=== PATIENT | male | born 1960 | race African-American/Black ===

== ENCOUNTER 2020-02-07 09:47 | Emergency (ER) | payer OTHER ==
[~2020-02-07] VITALS: Ht 182.9 cm; Wt 89.4 kg
[2020-02-07] MEDS ORDERED: SUMATRIPTAN SUC50 MG PO (09:59)
[2020-02-07 10:10] VITALS: BP 150/84
--- NOTE | 2020-02-07 10:40 | Emergency Room Report ---
History of Present Illness General Chief Complaint: Constipation Source: Patient Present Illness HPI Disclaimer: Please note that this report is being documented using DRAGON technology. This can lead to erroneous entry secondary to incorrect interpretation by the dictating instrument. HPI: 59-year-old male presents for constipation and difficulty urinating. Symptoms present approximately 3 days. He is unable to have a bowel movement which is unusual for the patient. Seen at urgent care yesterday and prescribed a bowel cleanout regimen which he took but has had no effect. Minimal passing gas. Also reports difficulty initiating urination. Sometimes will have dribbling of urine and is now wearing depends diapers. Denies dysuria, hematuria, hernia, abdominal surgery. Colonoscopy at age 51 was unremarkable according to patient. Denies history of prostate issues. Does not use any other medications. Denies drug or alcohol use. 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 EOMI. Cardiovascular: RRR. S1 and S2 normal. No murmur appreciated Resp: Normal work of breathing. No cough, wheezing or crackles appreciated Abdomen: Abdomen is soft, moderately distended. No significant tenderness. Skin: Intact. No abrasions, laceration or rash over the exposed skin MSK: Normal tone and bulk. Moving all extremities. No obvious deformity. Neuro: Awake and alert. Mentating appropriately. Medical Decision Making Diagnostic Impression: Primary Impression: Enlarged prostate Additional Impression: Urinary retention ER Course 59-year-old male presents for evaluation of constipation and difficulty urinating. Differential includes was not limited to obstruction, impaction, electrolyte abnormality, dehydration, prostate enlargement, cystitis, pyelonephritis to name a few. Patient does have a slightly distended abdomen. Labs returned within normal limits though he was not able to fully void. CT scan shows a distended abdomen without obvious evidence of fecal impaction or other significant findings. Creatinine slightly elevated above normal limit at 1.6. Prostate was noted to be enlarged. A Carney catheter was placed with significant evacuation of urine, approximately 1300 cc. A leg bag was provided for patient will be discharged with Carney catheter. He states he will see his PMD tomorrow for your referral to urology. Have his prostate levels checked and have his renal function rechecked next week. Encouraged him to drink plenty fluids to avoid dehydration. We will continue his bowel cleanout and start on MiraLAX. Encouraged to return to the emergency department any new or worsening symptoms. Otherwise stable for outpatient follow-up. He understands and agrees with this treatment plan. Laboratory Tests Test 02/07/20 10:44 White Blood Count 7.1 K/UL (4.8-10.8) Red Blood Count 4.08 M/UL (4.70-6.10) L Hemoglobin 14.7 G/DL (14.2-18.0) Hematocrit 43.6 % (42.0-52.0) Mean Corpuscular Volume 107 FL (80-99) H Mean Corpuscular Hemoglobin 36.1 PG (27.0-31.0) H Mean Corpuscular Hemoglobin Concent 33.7 G/DL (32.0-36.0) Red Cell Distribution Width 11.7 % (11.6-14.8) Platelet Count 285 K/UL (150-450) Mean Platelet Volume 6.5 FL (6.5-10.1) Neutrophils (%) (Auto) 62.2 % (45.0-75.0) Lymphocytes (%) (Auto) 23.6 % (20.0-45.0) Monocytes (%) (Auto) 6.4 % (1.0-10.0) Eosinophils (%) (Auto) 6.6 % (0.0-3.0) H Basophils (%) (Auto) 1.2 % (0.0-2.0) Urine Color Yellow Urine Appearance Clear Urine pH 6 (4.5-8.0) Urine Specific [place] 1.010 (1.005-1.035) Urine Protein Negative (NEGATIVE) Urine Glucose (UA) Negative (NEGATIVE) Urine Ketones 1+ (NEGATIVE) H Urine Blood 1+ (NEGATIVE) H Urine Nitrite Negative (NEGATIVE) Urine Bilirubin Negative (NEGATIVE) Urine Urobilinogen Normal MG/DL (0.0-1.0) Urine Leukocyte Esterase 1+ (NEGATIVE) H Urine RBC 0-2 /HPF (0 - 0) H Urine WBC 0-2 /HPF (0 - 0) Urine Squamous Epithelial Cells Occasional /LPF Urine Bacteria Occasional /HPF (NONE) Sodium Level 137 MMOL/L (136-145) Potassium Level 3.7 MMOL/L (3.5-5.1) Chloride Level 98 MMOL/L (98-107) Carbon Dioxide Level 32 MMOL/L (21-32) Anion Gap 7 mmol/L (5-15) Blood Urea Nitrogen 13 mg/dL (7-18) Creatinine 1.6 MG/DL (0.55-1.30) H Estimated Glomerular Filtration Rate 44.6 mL/min (>60) Glucose Level 114 MG/DL (74-106) H Calcium Level 9.6 MG/DL (8.5-10.1) Total Bilirubin 2.3 MG/DL (0.2-1.0) H Direct Bilirubin 0.4 MG/DL (0.0-0.3) H Aspartate Amino Transferase (AST) 21 U/L (15-37) Alanine Aminotransferase (ALT) 31 U/L (12-78) Alkaline Phosphatase 60 U/L (46-116) Total Protein 7.4 G/DL (6.4-8.2) Albumin 4.1 G/DL (3.4-5.0) Globulin 3.3 g/dL Albumin/Globulin Ratio 1.2 (1.0-2.7) Lipase 115 U/L (73-393) CT/MRI/US Diagnostic Results CT/MRI/US Diagnostic Results : Impression FINDINGS: The lung bases are clear. The liver and spleen are homogeneous. Gallbladder is without sludge or stone and there is no wall thickening. The pancreas is unremarkable. Adrenals are normal in morphology. There is slight fullness of the collecting system of both kidneys. No radiopaque stone identified. Small bowel loops are nondistended. The colon is also nondistended with average amount of stool. The appendix is normal. There is no free fluid or free air. No pathologic adenopathy demonstrated. Bladder is quite distended. Mild surrounding perivesicular induration noted near the dome of the bladder. Question underlying cystitis. With the dilated bladder and bilateral fullness of the renal collecting system, consider possible vesicoureteral reflux. Prostate is enlarged. There is a small fatty umbilical hernia. IMPRESSION: DISTENDED URINARY BLADDER WITH MILD SURROUNDING INDURATION. QUESTION UNDERLYING CYSTITIS. FULLNESS OF THE COLLECTING SYSTEM OF BOTH KIDNEYS POSSIBLY FROM REFLUX GIVEN THE DISTENDED BLADDER. ENLARGED PROSTATE. SMALL FATTY UMBILICAL HERNIA. Dictated By: Milan Nieves MD Electronically Signed By:Milan Nieves MD Signed Date/Time02/07/20 3420 CC: Jasmeet Long MD Last Vital Signs Date Time Temp Pulse Resp B/P (MAP) Pulse Ox O2 Delivery O2 Flow Rate FiO2 02/07/20 09:54 98.1 92 22 150/84 (106) 96 Room Air Disposition: HOME, SELF-CARE Condition: Stable Scripts Polyethylene Glycol 3350* (MIRALAX*) 17 Gm Powd.pack 17 GM ORAL DAILY for 14 Days, #28 PACKET Prov: Jasmeet Long MD 02/07/20 Jasmeet Long MD Feb 07, 2020 10:40
[2020-02-07] MEDS ORDERED: Omnipaque-300 100ml vial INJ PRN (10:45)
[2020-02-07 10:58] LABS: BASOPHILS % (AUTO) 1.2 % (0.0-2.0); EOSINOPHILS % (AUTO) 6.6 % (0.0-3.0); HEMATOCRIT 43.6 % (42.0-52.0); HEMOGLOBIN 14.7 G/DL (14.2-18.0); LYMPHOCYTES % (AUTO) 23.6 % (20.0-45.0); MEAN CORPUSCULAR VOLUME 107 FL (80-99); MONOCYTES % (AUTO) 6.4 % (1.0-10.0); NEUTROPHILS % (AUTO) 62.2 % (45.0-75.0); PLATELET COUNT 285 K/UL (150-450); RED BLOOD COUNT 4.08 M/UL (4.70-6.10); RED CELL DISTRIBUTION WIDTH 11.7 % (11.6-14.8); WHITE BLOOD COUNT 7.1 K/UL (4.8-10.8)
[2020-02-07 10:59] LABS: APPEARANCE,URINE CLEAR; BILIRUBIN, URINE NEGATIVE (NEGATIVE); GLUCOSE, URINE (UA) NEGATIVE (NEGATIVE); KETONES,URINE 1+ (NEGATIVE); LEUKOCYTE ESTERASE ,URINE 1+ (NEGATIVE); NITRITE,URINE NEGATIVE (NEGATIVE); PH,URINE 6 (4.5-8.0); PROTEIN,URINE NEGATIVE (NEGATIVE); UROBILINOGEN,URINE NORMAL MG/DL (0.0-1.0)
[2020-02-07 11:01] LABS: COLOR,URINE YELLOW
[2020-02-07 11:04] LABS: CALCIUM 9.6 MG/DL (8.5-10.1); CREATININE 1.6 MG/DL (0.55-1.30); POTASSIUM 3.7 MMOL/L (3.5-5.1)
[2020-02-07 11:14] LABS: ALBUMIN 4.1 G/DL (3.4-5.0); ALBUMIN/GLOBULIN RATIO 1.2 (1.0-2.7); BILIRUBIN,TOTAL 2.3 MG/DL (0.2-1.0)
[2020-02-07 11:15] LABS: BILIRUBIN,DIRECT 0.4 MG/DL (0.0-0.3)
--- NOTE | 2020-02-07 12:29 | Diagnostic Imaging Report ---
EXAM: CT CT Abdomen Pelvis WO Contrast INDICATION: Reason For Exam: ABD PAIN. COMPARISON: None TECHNIQUE: Axial images were obtained through the abdomen pelvis without intravenous contrast. Sagittal and coronal reformats are generated. All CT scans at this facility are performed using dose modulation techniques as appropriate to a performed exam including the following: automated exposure control with adjustment of the mA and/or kV according to patient size. RADIATION DOSE: CTDIvol: 7.3 mGy DLP: 412.5 mGy-cm Dose information generated by the CT scanner is available in PACS. FINDINGS: The lung bases are clear. The liver and spleen are homogeneous. Gallbladder is without sludge or stone and there is no wall thickening. The pancreas is unremarkable. Adrenals are normal in morphology. There is slight fullness of the collecting system of both kidneys. No radiopaque stone identified. Small bowel loops are nondistended. The colon is also nondistended with average amount of stool. The appendix is normal. There is no free fluid or free air. No pathologic adenopathy demonstrated. Bladder is quite distended. Mild surrounding perivesicular induration noted near the dome of the bladder. Question underlying cystitis. With the dilated bladder and bilateral fullness of the renal collecting system, consider possible vesicoureteral reflux. Prostate is enlarged. There is a small fatty umbilical hernia. IMPRESSION: DISTENDED URINARY BLADDER WITH MILD SURROUNDING INDURATION. QUESTION UNDERLYING CYSTITIS. FULLNESS OF THE COLLECTING SYSTEM OF BOTH KIDNEYS POSSIBLY FROM REFLUX GIVEN THE DISTENDED BLADDER. ENLARGED PROSTATE. SMALL FATTY UMBILICAL HERNIA.
[2020-02-07] MEDS ORDERED: MIRALAX17 G2 ORAL (12:55)
[2020-02-07 13:24] VITALS: BP 145/81
== END 2020-02-07 13:24 | disposition home or self-care (01) ==
LOC: EMR 10:15
DX: N40.1 Benign prostatic hyperplasia with lower urinary tract symptoms (principal); R33.8 Other retention of urine; K42.9 Umbilical hernia without obstruction or gangrene
CPT/HCPCS: 36415; 51702; 74176; 80053; 81003; 82248; 83690; 85025; 99284

== ENCOUNTER 2020-02-11 08:47 | Emergency (ER) | payer OTHER ==
[~2020-02-11] VITALS: Ht 185.4 cm; Wt 89.4 kg
[~2020-02-11 08:47] MED LIST: MIRALAX17 G2 ORAL; SUMATRIPTAN SUC50 MG PO
[2020-02-11 09:05] VITALS: BP 131/92
--- NOTE | 2020-02-11 09:20 | Emergency Room Report ---
History of Present Illness General Chief Complaint: Male Urogenital Problems Source: Patient Present Illness HPI Disclaimer: Please note that this report is being documented using DRAGON technology. This can lead to erroneous entry secondary to incorrect interpretation by the dictating instrument. HPI: 49-year-old male history of enlarged prostate with current Carney catheter presents for reevaluation. Patient was seen by me in the emergency department last week diagnosed with enlarged prostate and a Carney catheter was placed. He continues to have good urine output through his catheter into his leg bag. Denies abdominal pain, cramping, hematuria, pyuria, fever, chills, nausea, vomiting or any other complaints. His creatinine was elevated on last visit and told by PMD to return for repeat blood draw. He is scheduled to see a urologist next week. He would like to keep the Carney catheter in place at this time. Denies discomfort or bleeding. 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 EOMI. Resp: Normal work of breathing Abdomen: Soft, nontender, nondistended : Carney catheter in place. Leg bag with clear urine. No hematuria, no sediment Skin: Intact. No abrasions, laceration or rash over the exposed skin MSK: Normal tone and bulk. Moving all extremities. No obvious deformity. Neuro: Awake and alert. Mentating appropriately Medical Decision Making Diagnostic Impression: Primary Impression: Enlarged prostate ER Course 59-year-old male with history of enlarged prostate and currently with indwelling Carney catheter presents for repeat labs. Labs last week showed a creatinine 1.6 with a normal BUN. Creatinine now normalized to 1.1. Patient reports feeling much better after the Carney placement and would like to keep it until he sees his urologist. No evidence of infection. He is otherwise well-appearing no other complaints stable for outpatient follow-up. Copy of his lab report provided. Discussed reasons to return to the ED. He understands and agrees with this treatment plan. Lab Results Impression Laboratory Tests Test 02/11/20 09:13 Sodium Level 135 MMOL/L (136-145) L Potassium Level 4.0 MMOL/L (3.5-5.1) Chloride Level 102 MMOL/L (98-107) Carbon Dioxide Level 26 MMOL/L (21-32) Anion Gap 7 mmol/L (5-15) Blood Urea Nitrogen 9 mg/dL (7-18) Creatinine 1.1 MG/DL (0.55-1.30) Estimated Glomerular Filtration Rate > 60 mL/min (>60) Glucose Level 102 MG/DL (74-106) Calcium Level 8.9 MG/DL (8.5-10.1) Last Vital Signs Date Time Temp Pulse Resp B/P (MAP) Pulse Ox O2 Delivery O2 Flow Rate FiO2 02/11/20 08:53 98.1 94 18 131/92 (105) 98 Room Air Disposition: HOME, SELF-CARE Condition: Stable Jasmeet Long MD Feb 11, 2020 09:20
[2020-02-11 10:03] LABS: ANION GAP 7 mmol/L (5-15); BLOOD UREA NITROGEN 9 mg/dL (7-18); CALCIUM 8.9 MG/DL (8.5-10.1); CARBON DIOXIDE 26 MMOL/L (21-32); CHLORIDE 102 MMOL/L (98-107); CREATININE 1.1 MG/DL (0.55-1.30); SODIUM 135 MMOL/L (136-145)
[2020-02-11 10:15] VITALS: BP 131/92
== END 2020-02-11 10:15 | disposition home or self-care (01) ==
LOC: EMR 09:31
DX: N40.0 Benign prostatic hyperplasia without lower urinary tract symptoms (principal); Z46.6 Encounter for fitting and adjustment of urinary device
CPT/HCPCS: 36415; 80048; 99282

== ENCOUNTER 2020-02-16 05:35 | Emergency (ER) | payer OTHER ==
[~2020-02-16] VITALS: Ht 182.9 cm; Wt 89.4 kg
[2020-02-16 05:37] VITALS: BP 113/78
[2020-02-16] MEDS ORDERED: FLOMAX0.4 MG ORAL (05:41)
--- NOTE | 2020-02-16 05:49 | Emergency Room Report ---
History of Present Illness General Chief Complaint: Male Urogenital Problems Source: Patient, Medical Record Present Illness HPI This is a 59-year-old -[place] male with a history of BPH with urinary retention. He had a Carney placed 10 days ago. He saw his doctor and placed on Flomax. He said he wanted to try to remove the Carney to see if he can urinate. Since he is off the next couple of days he wanted to try this to see if it works. He is waiting for authorization to see a urologist. He denies any fever or chills. No nausea no vomiting. Nothing made it better. Nothing made it worse. No dysuria frequency. Allergies: Coded Allergies: No Known Allergies (Unverified , 02/07/20) COVID-19 Screening Contact w/high risk pt: No Experienced COVID-19 symptoms?: No COVID-19 Testing performed SERVICES REP: No Patient History Past Medical History: see triage record, old chart reviewed Past Surgical History: other Pertinent Family History: none Social History: Denies: smoking Immunizations: other Reviewed Nursing Documentation: PMH: Agreed; PSxH: Agreed Nursing Documentation-PMH Past Medical History: No History, Except For Hx Neurological Problems: Yes - migraines Review of Systems Eye: Denies: eye pain, blurred vision ENT: Denies: ear pain, nose congestion, throat swelling Respiratory: Denies: cough, shortness of breath Cardiovascular: Denies: chest pain, palpitations Gastrointestinal: Denies: abdominal pain, diarrhea, nausea, vomiting Musculoskeletal: Denies: back pain, joint pain Skin: Denies: rash Neurological: Denies: headache, numbness Endocrine: Denies: increased thirst, increased urine Hematologic/Lymphatic: Denies: easy bruising All Other Systems: negative except mentioned in HPI Physical Exam Vital Signs Date Time Temp Pulse Resp B/P (MAP) Pulse Ox O2 Delivery O2 Flow Rate FiO2 02/16/20 05:37 98.1 98 16 113/78 (90) 97 Room Air Vitals normal Sp02 EP Interpretation: reviewed, normal General Appearance: well appearing, no apparent distress, alert Head: normocephalic, atraumatic Eyes: bilateral eye PERRL, bilateral eye EOMI ENT: hearing grossly normal, normal pharynx Neck: full range of motion, supple, no meningismus Respiratory: chest non-tender, lungs clear, normal breath sounds Cardiovascular #1: regular rate, rhythm, no murmur Gastrointestinal: normal bowel sounds, non tender, no mass, no organomegaly, no bruit, non-distended Musculoskeletal: back normal, normal range of motion, gait/station normal Psychiatric: mood/affect normal Medical Decision Making Diagnostic Impression: Primary Impression: BPH with urinary obstruction ER Course With BPH with urinary retention. Will remove Carney. Explained to the patient that if he has urinary retention he needs to come back. Patient expressed understanding. No evidence of infection or pyelonephritis. Last Vital Signs Date Time Temp Pulse Resp B/P (MAP) Pulse Ox O2 Delivery O2 Flow Rate FiO2 02/16/20 05:37 98.1 98 16 113/78 (90) 97 Room Air Status: improved Disposition: HOME, SELF-CARE Condition: Stable Additional Instructions: Continue with your Flomax. Follow-up with your doctor as scheduled. You will need a referral to see a urologist. Return if you are unable to urinate. Tyrone Ferguson MD Feb 16, 2020 05:49
[2020-02-16 05:54] VITALS: BP 116/86
== END 2020-02-16 05:54 | disposition home or self-care (01) ==
LOC: EMR 05:54
DX: N40.1 Benign prostatic hyperplasia with lower urinary tract symptoms (principal); N13.8 Other obstructive and reflux uropathy
CPT/HCPCS: 99281

== ENCOUNTER 2020-02-16 13:16 | Emergency (ER) | payer OTHER ==
[~2020-02-16] VITALS: Ht 182.9 cm; Wt 89.4 kg
[~2020-02-16 13:16] MED LIST changes: +FLOMAX0.4 MG ORAL
[2020-02-16 13:30] VITALS: BP 117/76
--- NOTE | 2020-02-16 13:47 | Emergency Room Report ---
History of Present Illness General Chief Complaint: Male Urogenital Problems Source: Patient Present Illness HPI 51-year-old male here with urinary retention. The patient has a history of BPH and had a Carney catheter in place. The Carney catheter was electively removed earlier this morning here in the emergency department. Patient says that he was able to urinate once here in the emergency department before leaving. CBC and CMP and urinalysis were performed at that time which were unremarkable. Patient says however that he has been unable to urinate since then. Denies any other complaints. 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 Nursing Documentation-PMH Hx Dialysis: No - BPH Hx Neurological Problems: Yes - migraines Review of Systems All Other Systems: negative except mentioned in HPI Physical Exam Vital Signs Date Time Temp Pulse Resp B/P (MAP) Pulse Ox O2 Delivery O2 Flow Rate FiO2 02/16/20 13:19 97.9 117 20 112/73 (86) 99 Room Air Sp02 EP Interpretation: reviewed, normal General Appearance: no apparent distress, alert, non-toxic Head: normocephalic, atraumatic Eyes: bilateral eye normal inspection, bilateral eye PERRL ENT: hearing grossly normal, normal pharynx, no angioedema, normal voice Neck: full range of motion, supple/symm/no masses Respiratory: chest non-tender, lungs clear, normal breath sounds, speaking full sentences Cardiovascular #1: regular rate, rhythm, no edema Cardiovascular #2: 2+ carotid (R), 2+ carotid (L), 2+ radial (R), 2+ radial (L), 2+ dorsalis pedis (R), 2+ dorsalis pedis (L) Gastrointestinal: normal bowel sounds, non tender, soft, non-distended, no guarding, no rebound Rectal: deferred Genitourinary: normal inspection, no CVA tenderness, other - Suprapubic fullness on palpation. No CVA or abdominal tenderness Musculoskeletal: back normal, normal range of motion, gait/station normal, non- tender Neurologic: alert, motor strength/tone normal, oriented x3, sensory intact, responsive, speech normal Psychiatric: judgement/insight normal, memory normal, mood/affect normal, no suicidal/homicidal ideation Lymphatic: no adenopathy Medical Decision Making Diagnostic Impression: Primary Impression: Urinary retention Additional Impression: BPH with urinary obstruction ER Course 59-year-old male here with urinary retention. Patient had a Carney catheter placed in the emergency department and 400 cc of urine were expelled. Urine was clear. Review of urinalysis earlier today did not reveal any evidence of infection. Patient also had a CBC and a CMP performed earlier today which were also unremarkable without any evidence of acute kidney injury. Patient had immediate relief of his lower abdominal tenderness when the Carney catheter was placed in the ER and was successfully drained. Patient was given a leg bag and information to follow-up with urology. Patient does have an appointment later today with his primary care physician and says that he will be referred to a urologist from his PCP. Was told to come back to the emergency department if he has any worsening pain, fevers, chills, malfunction of the Careny catheter. He expressed understanding and was discharged. Last Vital Signs Date Time Temp Pulse Resp B/P (MAP) Pulse Ox O2 Delivery O2 Flow Rate FiO2 02/16/20 13:19 97.9 117 20 112/73 (86) 99 Room Air Disposition: HOME, SELF-CARE Condition: Stable Referrals: Eugene Monson MD [facility] Patient Instructions: Carney Catheter Care, Adult Additional Instructions: Follow-up with your primary care physician and urologist. Richardson Long M.D. Feb 16, 2020 13:47
[2020-02-16 13:54] VITALS: BP 118/75
[2020-02-16 13:59] LABS: APPEARANCE,URINE CLEAR; BILIRUBIN, URINE NEGATIVE (NEGATIVE); COLOR,URINE PALE YELLOW; GLUCOSE, URINE (UA) NEGATIVE (NEGATIVE); KETONES,URINE NEGATIVE (NEGATIVE); LEUKOCYTE ESTERASE ,URINE 2+ (NEGATIVE); NITRITE,URINE NEGATIVE (NEGATIVE); PH,URINE 7 (4.5-8.0); PROTEIN,URINE NEGATIVE (NEGATIVE); UROBILINOGEN,URINE NORMAL MG/DL (0.0-1.0)
== END 2020-02-16 13:56 | disposition home or self-care (01) ==
LOC: EMR 13:37
DX: N40.1 Benign prostatic hyperplasia with lower urinary tract symptoms (principal); N13.8 Other obstructive and reflux uropathy
CPT/HCPCS: 51702; 81003; 99282

== ENCOUNTER 2020-03-01 07:02 | Emergency (ER) | payer OTHER ==
[~2020-03-01] VITALS: Ht 182.9 cm; Wt 89.4 kg
--- NOTE | 2020-03-01 07:19 | NUR ---
ED Nurse Note: Pt walked into ED for urinary problems. Pt hasd F/C removed yesterday and hasn't been able to urinate since yesterday. Pt abdomen was firm. Pt is alert and orientedx4, ambulatory. History of BPH.
--- NOTE | 2020-03-01 07:24 | Emergency Room Report ---
History of Present Illness General Chief Complaint: Male Urogenital Problems Source: Patient Present Illness HPI Patient is a 59-year-old male presents for urinary retention. Patient had recent Carney catheter removal yesterday. Had been unable to void after taking the catheter out. Had recently started on antibiotics for urinary infection. Currently taking Cipro. Denies any vomiting or other complaints. Reports having no urine output since catheter removal yesterday at 2. Had been having problems with benign prostatic hypertrophy for several weeks. Is currently taking Flomax. 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 Patient History Past Medical History: see triage record Reviewed Nursing Documentation: PMH: Agreed; PSxH: Agreed Nursing Documentation-PMH Past Medical History: No History, Except For Hx Dialysis: No - BPH Hx Neurological Problems: Yes - migraines Review of Systems All Other Systems: negative except mentioned in HPI Physical Exam Vital Signs Date Time Temp Pulse Resp B/P (MAP) Pulse Ox O2 Delivery O2 Flow Rate FiO2 03/01/20 07:07 97.2 105 18 122/34 (63) 100 Room Air Sp02 EP Interpretation: reviewed, normal General Appearance: normal inspection, well appearing, no apparent distress, alert, GCS 15 Head: atraumatic ENT: normal ENT inspection, hearing grossly normal, normal voice Neck: normal inspection, full range of motion, supple, no bony tend Respiratory: normal inspection, lungs clear, normal breath sounds, no respiratory distress, no retraction, no wheezing Cardiovascular #1: regular rate, rhythm, no edema Gastrointestinal: normal inspection, normal bowel sounds, non tender, soft, no guarding, no hernia, other - Suprapubic bladder distention. Genitourinary: no CVA tenderness Musculoskeletal: normal inspection, back normal, normal range of motion Neurologic: alert, motor strength/tone normal, vamp marker III-XII nml as tested, oriented x3, responsive, speech normal, normal inspection Psychiatric: normal inspection, judgement/insight normal, mood/affect normal Medical Decision Making Diagnostic Impression: Primary Impression: Urinary retention Additional Impression: BPH with urinary obstruction ER Course Presented for urinary retention. Differential diagnosis include was not limited to benign prostatic hypertrophy, urinary retention due to medication, among others. Patient is currently taking antibiotics and does not appear to have any evidence of systemic infection. 18 [place] Carney catheter was placed by nursing staff. Patient is currently on antibiotics. Patient had large amount of urine output. Patient will be discharged home. He is to follow-up with his urologist. He is advised to return if worse. This medical record is generated with [employer] hot metal car operator software. There may be some hot metal car operator discrepancies related to use of this software Last Vital Signs Date Time Temp Pulse Resp B/P (MAP) Pulse Ox O2 Delivery O2 Flow Rate FiO2 03/01/20 07:07 97.2 105 18 122/34 (63) 100 Room Air Status: improved Disposition: HOME, SELF-CARE Condition: Stable Referrals: NON PHYSICIAN (PCP) Nixon Ortiz MD Mar 01, 2020 07:24
[2020-03-01 07:30] VITALS: BP 118/45
[2020-03-01] MEDS ORDERED: Lidocaine HCl 2% Jelly 6ml Tube TOPIC ONE (07:30)
--- NOTE | 2020-03-01 07:35 | NUR ---
ED Nurse Note: Coude 20F catheter placed, patent and draining. Pt pain now 3/10.
[2020-03-01 07:44] VITALS: BP 120/43
--- NOTE | 2020-03-01 07:47 | NUR ---
ER DISCHARGE NOTE: Patient is cleared to be discharged per ERMD, pt is aox4, on room air, with stable vital signs. pt was given dc and prescription instructions, pt was able to verbalize understanding, pt id band removed. pt is able to ambulate with steady gait. pt took all belongings. Pt has 20F catheter Coude in place.
== END 2020-03-01 07:47 | disposition home or self-care (01) ==
LOC: EMR 07:14
DX: N40.1 Benign prostatic hyperplasia with lower urinary tract symptoms (principal); N13.8 Other obstructive and reflux uropathy; Z79.899 Other long term (current) drug therapy
CPT/HCPCS: 51702; 99282